=== PATIENT | female | born 1995 | race African-American/Black ===

== ENCOUNTER 2022-11-30 17:37 | Emergency (ER) | payer OTHER ==
[~2022-11-30] VITALS: Ht 160 cm; Wt 64.0 kg
[2022-11-30 17:43] VITALS: TEMP 98.1; O2SAT 98
[2022-11-30 21:45] VITALS: BP 126/72; PULSE 89; RESP 20
[2022-11-30] MEDS ORDERED: IBUPROFEN 600MG TABLET PO ONE (21:45)
== END 2022-11-30 23:28 | disposition home or self-care (01) ==
LOC: ER 17:47
DX: M79.601 Pain in right arm (principal); M54.2 Cervicalgia; M25.531 Pain in right wrist; V49.49XA Driver injured in collision with other motor vehicles in traffic accident, initial encounter; Y93.89 Activity, other specified; Y92.89 Other specified places as the place of occurrence of the external cause; Y99.8 Other external cause status
CPT/HCPCS: 73030; 73060; 73090; 73110; 99284